=== PATIENT | male | born 1950 | race Asian ===

== ENCOUNTER 2017-05-07 11:33 | Emergency (ER) | payer MEDICAID, OTHER ==
[~2017-05-07] VITALS: Ht 167.6 cm; Wt 68.2 kg
[2017-05-07] MEDS ORDERED: METF500T4 PO (11:55)
[2017-05-07] MEDS ORDERED: BENA20 PO (11:55)
[2017-05-07] MEDS ORDERED: GLIP5 PO (11:55)
[2017-05-07] MEDS ORDERED: ATOR10TA84 PO (11:55)
[2017-05-07] MEDS ORDERED: ASPI-556 PO (11:55)
[2017-05-07 12:03] LABS: GLUCOSE,POINT OF CARE 225 MG/DL (70-110)
[2017-05-07 13:28] LABS: BASOPHILS # (AUTO) 0.02 K/uL (0.00-0.20); BASOPHILS % (AUTO) 0.2 % (0.0-2.0); EOSINOPHILS # (AUTO) 0.32 K/uL (0.00-0.70); EOSINOPHILS % (AUTO) 2.84 % (1.0-6.0); HEMOGLOBIN 14.6 g/dL (13.5-17.5); LYMPHOCYTES # (AUTO) 2.2 K/uL (1.0-4.8); LYMPHOCYTES % (AUTO) 19.9 % (22.0-44.0); MEAN CORPUSCULAR HEMOGLOBIN 30.9 pg (26.0-34.0); MEAN CORPUSCULAR HGB CONC 33.1 G/dL (31.0-37.0); MEAN CORPUSCULAR VOLUME 93 fL (80-100); MONOCYTES # (AUTO) 0.8 K/uL (0.1-1.0); MONOCYTES % (AUTO) 6.8 % (2.0-9.0); NEUTROPHILS % (AUTO) 70.4 % (40.0-70.0); PLATELET COUNT (AUTO) 213 K/uL (150-450); RED BLOOD CELL COUNT(AUTO) 4.72 MIL/uL (4.50-5.90); RED CELL DISTRIBUTION WIDTH 13.8 % (11.5-14.5); WHITE BLOOD COUNT (AUTO) 11.3 K/uL (4.5-11.0)
[2017-05-07 13:38] LABS: ANION GAP 12 mmol/L (8-16); CALCIUM, TOTAL 9.3 mg/dL (8.8-10.5); CARBON DIOXIDE 26 mmol/L (22-29); CHLORIDE 105 mmol/L (98-107); CREATININE 0.93 mg/dL (0.60-1.30); GLOMERULAR FILTR. RATE CALC > 60 mL/min (>60); POTASSIUM 3.9 mmol/L (3.5-5.1); SODIUM SERUM 143 mmol/L (136-145); UREA NITROGEN, BLOOD 13 mg/dL (7-18)
[2017-05-07 13:43] LABS: ALANINE AMINOTRANSFERASE 41 U/L (12-78); ALBUMIN 3.6 g/dL (3.4-5.0); ASPARTATE AMINOTRANSFERASE 26 U/L (15-37); BILIRUBIN,TOTAL 0.6 mg/dL (0.1-1.0); TOTAL PROTEIN, SERUM 7.8 g/dL (6.4-8.2)
[2017-05-07 14:25] VITALS: BP 150/90
== END 2017-05-07 15:07 | disposition home or self-care (01) ==
LOC: EMS 11:35
DX: I10 Essential (primary) hypertension (principal); E11.9 Type 2 diabetes mellitus without complications; R81 Glycosuria; R05 Cough; Z79.82 Long term (current) use of aspirin
CPT/HCPCS: 82948; 82962; 93005; 99285

== ENCOUNTER 2022-12-14 11:37 | Emergency (ER) | payer OTHER ==
[~2022-12-14] VITALS: Ht 167.6 cm; Wt 70.5 kg
[~2022-12-14 11:37] MED LIST: ASPI-556 PO; ATOR10TA PO; BENA20TA83 PO; GLIP5TAB12 PO; METF-1211 PO
[2022-12-14] MEDS ORDERED: LOSA-381 PO (11:41)
[2022-12-14] MEDS ORDERED: ACET-2247 PO (11:41)
[2022-12-14] MEDS ORDERED: AMLO-257 PO (11:41)
[2022-12-14] MEDS ORDERED: IBUP-1492 PO (13:55)
[2022-12-14 14:00] VITALS: BP 125/77
== END 2022-12-14 14:17 | disposition home or self-care (01) ==
LOC: EMS 11:37
DX: S16.1XXA Strain of muscle, fascia and tendon at neck level, initial encounter (principal); M54.89 Other dorsalgia; I10 Essential (primary) hypertension; E11.9 Type 2 diabetes mellitus without complications; E78.00 Pure hypercholesterolemia, unspecified; V89.2XXA Person injured in unspecified motor-vehicle accident, traffic, initial encounter; Y93.89 Activity, other specified; Y92.89 Other specified places as the place of occurrence of the external cause; Y99.8 Other external cause status
CPT/HCPCS: 99282; Z7502